=== PATIENT | female | born 1965 | race Caucasian/White ===

== ENCOUNTER 2018-06-07 00:17 | Inpatient (IN) | payer BC ==
[~2018-06-07] VITALS: Ht 167.6 cm; Wt 85.4 kg
[~2018-06-07 00:17] MED LIST: CARV3.122 PO; FLO0.4C PO; PROM25TA14 PO; SYN0.025T PO
[2018-06-07 00:45] LABS: BASOPHILS % (AUTO) 0.2 % (0-1); EOSINOPHILS # (AUTO) 0.1 X10'3 (0-0.9); EOSINOPHILS % (AUTO) 2.7 % (0-6); HEMATOCRIT 37.3 % (35.0-45.0); HEMOGLOBIN 13.3 g/dl (12.0-16.0); LYMPHOCYTES # (AUTO) 1.7 X10'3 (1.1-4.8); LYMPHOCYTES % (AUTO) 32.4 % (21-51); MEAN CORPUSCULAR HEMOGLOBIN 33.6 PG (27.0-31.0); MEAN CORPUSCULAR HGB CONC 35.7 % (33.0-36.5); MEAN CORPUSCULAR VOLUME 93.9 FL (78-98); MEAN PLATELET VOLUME 7.9 FL (7.4-10.4); MONOCYTES # (AUTO) 0.4 X10'3 (0-0.9); MONOCYTES % (AUTO) 7.1 % (2-12); NEUTROPHILS % (AUTO) 57.6 % (42-75); PLATELET COUNT 169 X10'3 (140-440); RED BLOOD COUNT 3.97 X10'6 (4.20-5.60); RED CELL DISTRIBUTION WIDTH 11.2 % (11.5-14.5); WHITE BLOOD COUNT 5.2 X10'3 (4.5-11.0)
[2018-06-07 00:56] LABS: ALANINE AMINOTRANSFERASE 26 U/L (12-78); ALBUMIN 3.6 G/DL (3.4-5.0); ALBUMIN/GLOBULIN RATIO 1.3 (1.1-1.5); ALKALINE PHOSPHATASE 67 IU/L (46-116); ANION GAP 10 (8-16); ASPARTATE AMINO TRANSFERASE 14 U/L (10-37); BILIRUBIN,TOTAL 0.3 MG/DL (0.1-1.0); BLOOD UREA NITROGEN 22 MG/DL (7-18); BUN/CREATININE RATIO 29.7 (6.6-38.0); CALCIUM 8.9 MG/DL (8.5-10.1); CHLORIDE 107 MMOL/L (99-107); CREATININE 0.74 MG/DL (0.40-0.90); GLUCOSE 117 MG/DL (70-104); POTASSIUM 3.5 MMOL/L (3.5-5.1); SODIUM 143 MMOL/L (135-145); TOTAL CARBON DIOXIDE 25.8 MMOL/L (24-32); TOTAL PROTEIN 6.4 G/DL (6.4-8.2); eGFR 83 ML/MIN
[2018-06-07 01:04] LABS: PARTIAL THROMBOPLASTIN TIME 23 SECONDS (22-32)
[2018-06-07 02:11] LABS: D-DIMER 0.48 MG/L FEU (0-0.50)
[2018-06-07] MEDS ORDERED: ondansetron/PF 4mg/2ml inj IV ONE (02:20)
[2018-06-07] MEDS ORDERED: aspirin 81mg tab.chew PO ONE (02:40)
[2018-06-07] MEDS ORDERED: nitroGLYCERIN 0.4mg/hour patch TD ONE (02:40)
[2018-06-07] MEDS ORDERED: total restore PO (02:49)
[2018-06-07] MEDS ORDERED: CHOL500050 PO (03:01)
[2018-06-07] MEDS ORDERED: FLUT16SP20 (03:01)
[2018-06-07] MEDS ORDERED: FISH OIL PO (03:01)
[2018-06-07] MEDS ORDERED: MULT1TAB74 PO (03:01)
[2018-06-07] MEDS ORDERED: VIT1TABL83 PO (03:01)
[2018-06-07] MEDS ORDERED: VALA500T37 PO (03:01)
[2018-06-07] MEDS ORDERED: CALC-336 (03:06)
[2018-06-07] MEDS ORDERED: MAGN400C PO (03:06)
[2018-06-07] MEDS ORDERED: HYDROmorphone inj. 0.5 MG/0.5 ML DISP.SYRIN IV ONE (03:20)
[2018-06-07] MEDS ORDERED: iohexol 350MG/ML 100ml bottle IV ONE (05:19)
[2018-06-07] MEDS ORDERED: levoFLOXACIN-Levaquin 750MG/D5 150 ML IV STA (08:10)
[2018-06-07] MEDS ORDERED: potassium Cl 40MEQ/NS 500ml 500 ML IV PRN ×2 (08:25)
[2018-06-07] MEDS ORDERED: mag hydrox/Alum hydrox/simeth 30ml oral suspension PO PRN (08:25)
[2018-06-07] MEDS ORDERED: magnesium hydroxide 30ml (MOM) UD suspension PO PRN (08:25)
[2018-06-07] MEDS ORDERED: magnesium Cl slow-release 64mg tablet PO PRN (08:25)
[2018-06-07] MEDS ORDERED: acetaminophen 325mg tablet PO PRN (08:25)
[2018-06-07] MEDS ORDERED: magnesium 1gm/100ml D5W IVPB 100 ML IV PRN (08:25)
[2018-06-07] MEDS ORDERED: magnesium 4gm in 100ml NS 100 ML IV PRN (08:25)
[2018-06-07] MEDS ORDERED: potassium Cl 20 mEq SR tablet PO PRN ×2 (08:25)
[2018-06-07] MEDS ORDERED: proMETHazine 25mg tablet PO PRN (08:30)
[2018-06-07] MEDS ORDERED: SYN0.088T PO (08:43)
[2018-06-07] MEDS ORDERED: OMEGA-3/DHA/EPA/FISH OIL 1 EACH CAPSULE.DR PO SCH (08:45)
[2018-06-07] MEDS: ondansetron/PF 4mg/2ml inj IV PRN (10:43)
[2018-06-07 10:45] VITALS: BP 147/75
[2018-06-07 15:00] VITALS: BP 137/68
[2018-06-07 19:00] VITALS: BP 136/72
[2018-06-07] MEDS: heparin, porcine 5000 units/ml vial SQ SCH (19:21)
[2018-06-07] MEDS ORDERED: carVEDilol 3.125mg tablet PO SCH (20:00)
[2018-06-07 23:00] VITALS: BP 122/53
[2018-06-08 03:00] VITALS: BP 117/60
[2018-06-08 05:14] LABS: BASOPHILS % (AUTO) 0.3 % (0-1); EOSINOPHILS # (AUTO) 0.1 X10'3 (0-0.9); HEMATOCRIT 38.5 % (35.0-45.0); HEMOGLOBIN 13.4 g/dl (12.0-16.0); LYMPHOCYTES # (AUTO) 1.9 X10'3 (1.1-4.8); LYMPHOCYTES % (AUTO) 36.7 % (21-51); MEAN CORPUSCULAR HEMOGLOBIN 33.2 PG (27.0-31.0); MEAN CORPUSCULAR HGB CONC 34.8 % (33.0-36.5); MEAN CORPUSCULAR VOLUME 95.5 FL (78-98); MEAN PLATELET VOLUME 8.5 FL (7.4-10.4); MONOCYTES # (AUTO) 0.5 X10'3 (0-0.9); MONOCYTES % (AUTO) 10.2 % (2-12); NEUTROPHILS # (AUTO) 2.7 X10'3 (1.8-7.7); NEUTROPHILS % (AUTO) 50.8 % (42-75); PLATELET COUNT 183 X10'3 (140-440); RED BLOOD COUNT 4.03 X10'6 (4.20-5.60); RED CELL DISTRIBUTION WIDTH 11.6 % (11.5-14.5); WHITE BLOOD COUNT 5.2 X10'3 (4.5-11.0)
[2018-06-08 05:32] LABS: ALANINE AMINOTRANSFERASE 25 U/L (12-78); ALBUMIN 3.4 G/DL (3.4-5.0); ALBUMIN/GLOBULIN RATIO 1.2 (1.1-1.5); ALKALINE PHOSPHATASE 61 IU/L (46-116); ANION GAP 11 (8-16); ASPARTATE AMINO TRANSFERASE 11 U/L (10-37); BILIRUBIN,TOTAL 0.5 MG/DL (0.1-1.0); BLOOD UREA NITROGEN 11 MG/DL (7-18); BUN/CREATININE RATIO 18.3 (6.6-38.0); CALCIUM 8.2 MG/DL (8.5-10.1); CHLORIDE 108 MMOL/L (99-107); GLUCOSE 93 MG/DL (70-104); POTASSIUM 3.6 MMOL/L (3.5-5.1); SODIUM 143 MMOL/L (135-145); TOTAL CARBON DIOXIDE 23.8 MMOL/L (24-32); TOTAL PROTEIN 6.3 G/DL (6.4-8.2); eGFR > 90 ML/MIN
[2018-06-08 06:52] VITALS: BP 122/58
[2018-06-08] MEDS ORDERED: levoTHYROXINE 88mcg tablet PO SCH (07:00)
[2018-06-08] MEDS: ondansetron/PF 4mg/2ml inj IV PRN (07:42)
[2018-06-08] MEDS ORDERED: OMEGA-3/DHA/EPA/FISH OIL 1 EACH CAPSULE.DR PO SCH (08:00)
[2018-06-08] MEDS ORDERED: tamsulosin 0.4mg capsule PO SCH (08:00)
[2018-06-08] MEDS ORDERED: TOTAL RESTORE PO SCH (08:00)
[2018-06-08] MEDS ORDERED: multivitamins, therapeutics tablet PO SCH (08:00)
[2018-06-08] MEDS ORDERED: K and/or MAG REPLACEMENT MC SCH (08:00)
[2018-06-08] MEDS ORDERED: vitamin B comp w/Vit. C tab 1 TAB TABLET PO SCH (08:00)
[2018-06-08] MEDS ORDERED: vitamin D (cholecalciferol) 1,000 unit tablet PO SCH (08:00)
[2018-06-08] MEDS ORDERED: levoFLOXACIN-Levaquin 750MG/D5 150 ML IV SCH (08:00)
[2018-06-08] MEDS ORDERED: valacyclovir 500mg tablet PO SCH (08:00)
[2018-06-08] MEDS: heparin, porcine 5000 units/ml vial SQ SCH (08:08)
[2018-06-08] MEDS ORDERED: LEVO750T21 PO (11:44)
[2018-06-08 12:04] VITALS: BP 132/73
[2018-06-08] MEDS ORDERED: lactobacillus rhamnosus 10,000 MMU CELLS/CAPSULE PO SCH (20:00)
== END 2018-06-08 13:50 | disposition home or self-care (01) | DRG 195 ==
LOC: ER 00:18 → ED HOLD 08:00 → PCU 3S 10:26
PROVIDERS: ADMIT Internal Medicine; ATTEND Internal Medicine
PROC: B32T1ZZ Computerized Tomography (CT Scan) of Left Pulmonary Artery using Low Osmolar Contrast (ICD-10-PCS; principal; 2018-06-07)
PROC: B3201ZZ Computerized Tomography (CT Scan) of Thoracic Aorta using Low Osmolar Contrast (ICD-10-PCS; 2018-06-07)
PROC: B32S1ZZ Computerized Tomography (CT Scan) of Right Pulmonary Artery using Low Osmolar Contrast (ICD-10-PCS; 2018-06-07)
DX: J18.1 Lobar pneumonia, unspecified organism (principal); E03.9 Hypothyroidism, unspecified; R06.03 Acute respiratory distress; E05.90 Thyrotoxicosis, unspecified without thyrotoxic crisis or storm; I10 Essential (primary) hypertension; I44.7 Left bundle-branch block, unspecified; Z82.49 Family history of ischemic heart disease and other diseases of the circulatory system; Z83.3 Family history of diabetes mellitus; Z79.899 Other long term (current) drug therapy
CPT/HCPCS: 36415; 71045; 71275; 80053; 83735; 83880; 84145; 84439; 84443; 84480; 84484; 85025; 85379; 85610; 85730; 87070; 93005; 93306; 96365; 96375; 99285; J1644; J1956; J2405; Q9967

== ENCOUNTER 2019-05-31 08:55 | Day surgery (SDC) | payer BC ==
[2019-05-30 17:12] LABS: BASOPHILS % (AUTO) 0.5 % (0-1); EOSINOPHILS # (AUTO) 0.2 X10'3 (0-0.9); EOSINOPHILS % (AUTO) 2.7 % (0-6); HEMOGLOBIN 14.2 g/dl (12.0-16.0); LYMPHOCYTES # (AUTO) 1.9 X10'3 (1.1-4.8); LYMPHOCYTES % (AUTO) 32.4 % (21-51); MEAN CORPUSCULAR HGB CONC 34.6 g/dL (33.0-36.5); MEAN CORPUSCULAR VOLUME 98.1 FL (78-98); MEAN PLATELET VOLUME 7.6 FL (7.4-10.4); MONOCYTES # (AUTO) 0.5 X10'3 (0-0.9); MONOCYTES % (AUTO) 9.3 % (2-12); NEUTROPHILS # (AUTO) 3.2 X10'3 (1.8-7.7); NEUTROPHILS % (AUTO) 55.1 % (42-75); PLATELET COUNT 219 X10'3 (140-440); RED BLOOD COUNT 4.18 X10'6 (4.20-5.60); RED CELL DISTRIBUTION WIDTH 12.5 % (11.5-14.5); WHITE BLOOD COUNT 5.8 X10'3 (4.5-11.0)
[2019-05-30 17:17] LABS: ANION GAP 6 (8-16); BLOOD UREA NITROGEN 20 MG/DL (7-18); BUN/CREATININE RATIO 22.7 (6.6-38.0); CALCIUM 9.7 MG/DL (8.5-10.1); CHLORIDE 106 MMOL/L (99-107); CREATININE 0.88 MG/DL (0.40-0.90); GLUCOSE 97 MG/DL (70-104); POTASSIUM 4.1 MMOL/L (3.5-5.1); SODIUM 141 MMOL/L (135-145); eGFR 68 ML/MIN
[2019-05-30 17:27] LABS: PARTIAL THROMBOPLASTIN TIME 27 SECONDS (22-32)
[2019-05-31] VITALS (10 sets, daily range): BP systolic 142–169; BP diastolic 70–102
[~2019-05-31] VITALS: Ht 167.6 cm; Wt 86.1 kg
[~2019-05-31 08:55] MED LIST changes: +CALC-336; -CARV3.122 PO; +CHOL500050 PO; +FISH OIL PO; -FLO0.4C PO; +FLUT16SP20; +MAGN400C PO; +MULT1TAB74 PO; -PROM25TA14 PO; -SYN0.025T PO; +SYN0.088T PO; +VALA500T37 PO; +VIT1TABL83 PO; +total restore PO
[2019-05-31] MEDS ORDERED: LIDOcaine/PRILOcaine 5gm cream TP ONE (09:20)
[2019-05-31] MEDS ORDERED: normal saline 1,000 ML IV SCH (09:40)
[2019-05-31] MEDS ORDERED: diphenhydrAMINE 25mg capsule PO PRN (09:40)
[2019-05-31] MEDS ORDERED: LORazepam 0.5 MG tablet PO PRN (09:40)
[2019-05-31] MEDS ORDERED: midazolam 2 mg/2 ml injection ONE (13:24)
[2019-05-31] MEDS ORDERED: iohexol 350 MG/ML 50ML vial IV ONE (13:24)
[2019-05-31] MEDS ORDERED: LIDOcaine 1% (10mg/ml)w/preservative injection 20ml MDV ONE (13:24)
[2019-05-31] MEDS ORDERED: iohexol 350MG/ML 100ml bottle IV ONE (13:24)
[2019-05-31] MEDS ORDERED: nitroGLYCERIN-Tridil 50MG/D5W 250 ML IV ONE (13:24)
[2019-05-31] MEDS ORDERED: heparin 1,000unit/ml 10ml vial 10 ML ONE (13:24)
[2019-05-31] MEDS ORDERED: fentaNYL/PF 50MCG/1 ML 2ML syringe ONE (13:24)
[2019-05-31] MEDS ORDERED: verapamil 2.5 mg/ml inj IV ONE (13:25)
[2019-05-31] MEDS ORDERED: DOBUTamine-DoBUTrex 500mg/D5W 250 ML IV ONE (14:32)
[2019-05-31] MEDS ORDERED: atropine 0.1mg/ml 10ml syringe ONE (14:44)
[2019-05-31] MEDS ORDERED: metoprolol tartrate 1mg/ml inj IV ONE (14:54)
[2019-05-31 17:16] LABS: ISTAT Hct MIX 37 %PCV (35-48); ISTAT O2 SATURATION MIX VENOUS 75 % (60-80); ISTAT SOURCE MIX
[2019-05-31 17:16] LABS: ISTAT HGB ART 13.3 g/dl (12.0-16.0); ISTAT Hct ART 39 %PCV (35-48); ISTAT O2 SATURATION ARTERIAL 95 % (95-98); ISTAT SOURCE ART
== END 2019-05-31 19:45 | disposition home or self-care (01) ==
LOC: SSTAY O 08:55
PROVIDERS: ATTEND Internal Medicine Cardiovascular Disease
DX: R94.39 Abnormal result of other cardiovascular function study (principal); I25.10 Atherosclerotic heart disease of native coronary artery without angina pectoris; E78.5 Hyperlipidemia, unspecified; E03.9 Hypothyroidism, unspecified; E66.3 Overweight; Z68.30 Body mass index [BMI] 30.0-30.9, adult; Z98.890 Other specified postprocedural states; Z79.01 Long term (current) use of anticoagulants; Z79.899 Other long term (current) drug therapy; Z82.49 Family history of ischemic heart disease and other diseases of the circulatory system
CPT/HCPCS: 36415; 80048; 82803; 85014; 85025; 85610; 85730; 93005; 93460; 99152; 99153; C1894; J0461; J1250; J1644; J2001; J2250; J3010; J7030; Q0163; Q9967; 76937; A4620; A4663; A5120; A6258; J3490